=== PATIENT | female | born 1995 | race Caucasian/White ===

== ENCOUNTER 2017-08-27 22:12 | Emergency (ER) | payer BC, OTHER ==
[~2017-08-27] VITALS: Ht 177.8 cm; Wt 94.1 kg
[2017-08-27 22:15] VITALS: Ht 177.8 cm; Wt 94.1 kg
[2017-08-27] MEDS ORDERED: LORAZEPAM 1 MG TAB PO STA (22:30)
[2017-08-27] MEDS ORDERED: BCPILLS PO (22:38)
--- NOTE | 2017-08-27 22:43 | EMERGENCY ROOM VISIT NOTE ---
History Report prepared by Mustapha: Alla Joshi Under the Supervision of: Dr. Tuan Simmons M.D. First contact with patient: 22:19 Chief Complaint: VOMITING Stated Complaint: VOMITING,HEAD ON FIRE History of Present Illness The patient is a 22 year old female who presents to the Emergency Room with complaints of persistent vomiting that began about an hour prior to arrival. She reports a history of migraines, anxiety, and panic attacks, but states that she not experienced symptoms related to those conditions recently. The patient states that she recently was taking Prednisone for a sinus infection. She reports that she had a stressful day due to complications with her roommates, noting that she has been tearful all day. The patient went to the movies and when she was leaving, she began experiencing vomiting, a runny nose, uncontrollable shaking, and feeling like her entire face is "on fire", noting that it feels similar to previous sinus infections. She denies any chest pain or dizziness. The patient notes that her last normal menstrual period was 2 weeks ago. Source of History: patient Onset: an hour prior to arrival Position: other (gastrointestinal) Quality: other (vomiting) Timing: other (persistent) Associated Symptoms: + vomiting, No chest pain Note: Associated symptoms include: runny nose, uncontrollable shaking, and feeling like her entire face is "on fire". Patient denies dizziness. Review of Systems See HPI for pertinent positives and negatives. A total of ten systems were reviewed and were otherwise negative. Past Medical & Surgical Medical Problems: (1) Anxiety (2) Migraines Family History Hypertension Social History Smoking Status: Never Smoker Alcohol Use: none Drug Use: none Marital Status: single Housing Status: lives with roommate Occupation Status: [email or web address] student Current/Historical Medications Scheduled Control Pills ( Control Pills), 1 TAB PO DAILY Ondasetron Odt (Zofran Odt), 4 MG SL Q6H Allergies Coded Allergies: No Known Allergies (Unverified , 08/27/17) Physical Exam Vital Signs Date Time Temp Pulse Resp B/P (MAP) Pulse Ox O2 Delivery O2 Flow Rate FiO2 08/28/17 00:29 36.6 88 26 130/86 96 08/27/17 22:15 36.6 133 26 161/97 96 Room Air Physical Exam GENERAL: Awake, alert, anxious-appearing, and tearful HENT: Dry mucous membranes. Boggy nasal turbinates. Normocephalic, atraumatic. Oropharynx unremarkable. EYES: Normal conjunctiva. Sclera non-icteric. NECK: Supple. No nuchal rigidity. FROM. No JVD. RESPIRATORY: Clear to auscultation. CARDIAC: Regular rate, normal rhythm. Extremities warm and well perfused. Pulses equal. ABDOMEN: Soft, non-distended. No tenderness to palpation. No rebound or guarding. No masses. RECTAL: Deferred. MUSCULOSKELETAL: Chest examination reveals no tenderness. The back is symmetrical on inspection without obvious abnormality. There is no CVA tenderness to palpation. No joint edema. LOWER EXTREMITIES: Calves are equal size bilaterally and non-tender. No edema. No discoloration. NEURO: Normal sensorium. No sensory or motor deficits noted. normal cerebellar function with kpetzo-gd-nfen, alternating palms, yaxw-xo-ghop SKIN: No rash or jaundice noted. Medical Decision & Procedures Medications Administered Medications (Trade) Dose Ordered Sig/Heidi Route Start Time Stop Time Status Last Admin Dose Admin Lorazepam (Ativan Tab) 1 mg NOW STAT PO 08/27/17 22:30 08/27/17 22:31 DC 08/27/17 22:39 1 MG Acetaminophen (Tylenol Tab) 1,000 mg NOW STAT PO 08/27/17 23:08 08/27/17 23:09 DC 08/27/17 23:13 1,000 MG Ibuprofen (Motrin Tab) 800 mg NOW STAT PO 08/27/17 23:08 08/27/17 23:09 DC 08/27/17 23:13 800 MG Ondansetron HCl (Zofran Odt) 4 mg NOW STAT PO 08/27/17 23:08 08/27/17 23:09 DC 08/27/17 23:12 4 MG Ondansetron HCl (Zofran Odt) 4 mg ONE STAT PO 08/27/17 23:17 08/27/17 23:18 DC 08/27/17 23:25 4 MG Ondansetron HCl (ZOFRAN ODT 4MG Home Pack) 1 homepack UD ONCE PO 08/28/17 00:15 08/28/17 00:16 DC 08/28/17 00:21 1 HOMEPACK ED Course 2222: The patient was evaluated in room A11. A complete history and physical exam was performed. 0012: I reevaluated the patient. Discussed results and discharge instructions: she verbalized understanding and agreement. The patient is ready for discharge. Medical Decision I reviewed the patient's past medical history, medications, and the nursing notes as described above. Differential diagnosis: Etiologies such as migraine headache, meningitis, sinusitis, CO exposure, ICH, SAH, infection, tumor, headache, sinus thrombosis, arterial dissection, as well as others were entertained. The patient is a 22 yo woman who presents to the emergency department with BARNES, n /v, and tremulousness after getting into argument with her roommate per HPI. On arrival the patient is anxious appearing but in NAD, tachycardic but VS otherwise stable. Denies TAD. Denies chance of . Upon further discussion with the patient and her mother at the bedside they report that the patient generally has underlying anxious and they admit that her symptoms are probably related to this. Otherwise, the patient's exam is unremarkable, neuro intact including normal cerebellar function with fwyhtc-il-qmza, alternating palms, udlp-va-texx, and steady gait. Patient given ativan with good effect and resolution of her tremulousness. Still will nausea and BARNES that improved with zofran and Apap/IB. Given otherwise healthy 22 y/o and symptoms that were clearly provoked by stressful situation with subsequent improvement with anxiolysis, episode most c/w panic attack. Mild sinus congestion likely viral, instructed to use saline rinse and mucinex as needed. Findings and plan for follow-up reviewed with patient. Patient agreeable and d/c'd per discharge instructions. Medication Reconcilliation Current Medication List: was personally reviewed by me Blood Pressure Screening Patient's blood pressure: Elevated blood pressure Blood pressure disposition: Elevated BP felt to be situational Impression Primary Impression: Panic attack Additional Impressions: Nausea and vomiting Headache Scribe Attestation The scribe's documentation has been prepared under my direction and personally reviewed by me in its entirety. I confirm that the note above accurately reflects all work, treatment, procedures, and medical decision making performed by me. Departure Information Dispostion Home / Self-Care Prescriptions Ondasetron Odt (ZOFRAN ODT) 4 Mg Tab 4 MG SL Q6H for Nausea, #10 TAB Prov: Tuan Simmons M.D. 08/28/17 Referrals No Doctor, Assigned (PCP) Forms HOME CARE DOCUMENTATION FORM, IMPORTANT VISIT INFORMATION Patient Instructions Anxiety Body Response, ED Nausea Vomiting, My [facility] Additional Instructions Please follow up with [facility] in the next 1-3 days for re-evaluation. Your symptoms are most likely related to a panic attack/anxiety due to your recent stress. Otherwise, your exam did not show signs of an emergent condition at this time. Acetaminophen or ibuprofen for pain as needed. Zofran as needed for nausea. Drink plenty of fluids to ensure hydration. Return to the emergency department for worsening symptoms as described in the accompanying instructions. Problem Qualifiers
[2017-08-27] MEDS ORDERED: IBUPROFEN 600 MG TAB PO STA (23:08)
[2017-08-27] MEDS ORDERED: ONDANSETRON 2MG ODT PO STA (23:08)
[2017-08-27] MEDS ORDERED: ACETAMINOPHEN 500 MG TAB PO STA (23:08)
[2017-08-27] MEDS ORDERED: ONDANSETRON 4MG OD TAB PO STA (23:17)
[2017-08-28] MEDS ORDERED: ONDA4TAB10 SL (00:08)
[2017-08-28] MEDS ORDERED: ONDANSETRON HOME PACK 4MG OD TAB PO ONE (00:15)
[2017-08-28 00:29] VITALS: BP 130/86; PULSE 88; TEMP 36.6; O2SAT 96
== END 2017-08-28 00:30 | disposition home or self-care (01) ==
LOC: C.EDB 22:14 → C.EDA 08-28 00:30
DX: F41.0 Panic disorder [episodic paroxysmal anxiety] (principal); R11.2 Nausea with vomiting, unspecified; R51 Headache; Z79.3 Long term (current) use of hormonal contraceptives